=== PATIENT | female | born 1985 | race Hispanic/Latino ===

== ENCOUNTER 2021-05-25 13:21 | Outpatient (CLI) | payer OTHER | END 2021-05-25 13:22 | disposition home or self-care (01) | LOC: CSHMAMMO 13:21 | PROVIDERS: ATTEND Obstetrics & Gynecology | DX: N64.4 Mastodynia (principal) | CPT/HCPCS: 77066; G0279 ==

== ENCOUNTER 2021-11-15 08:52 | Outpatient (CLI) | payer OTHER | END 2021-11-15 08:53 | disposition home or self-care (01) | LOC: CSHULT 08:52 | PROVIDERS: ATTEND Obstetrics & Gynecology | DX: R92.8 Other abnormal and inconclusive findings on diagnostic imaging of breast (principal) ==

== ENCOUNTER 2022-02-03 12:34 | Day surgery (SDC) | payer OTHER ==
[2022-02-03] MEDS ORDERED: hydrALAZINE 20 MG/ML VIAL SLOW IVP PRN (14:24)
== END 2022-02-03 14:35 | disposition home or self-care (01) ==
LOC: CSHLD/OP 12:34
PROVIDERS: ATTEND Obstetrics & Gynecology
DX: O26.892 Other specified pregnancy related conditions, second trimester (principal); R10.2 Pelvic and perineal pain; O32.1XX0 Maternal care for breech presentation, not applicable or unspecified; O09.522 Supervision of elderly multigravida, second trimester; O34.219 Maternal care for unspecified type scar from previous cesarean delivery; O09.212 Supervision of pregnancy with history of pre-term labor, second trimester; Z3A.26 26 weeks gestation of pregnancy; Z88.0 Allergy status to penicillin; Z79.899 Other long term (current) drug therapy
CPT/HCPCS: 76815; 99282

== ENCOUNTER 2022-05-04 10:08 | Inpatient (IN) | payer OTHER ==
[2022-05-03 13:01] LABS: Hemoglobin 10.6 g/dL (12.0-15.5); Mean Corpuscular HGB CONC 30.7 g/dL (32.0-36.0); Mean Corpuscular Hemoglobin 23.9 pg (27.0-33.0); Mean Corpuscular Volume 77.7 fl (81.6-98.3); Mean Platelet Volume 10.5 fl (7.4-10.4); Platelet Count 324 10x3/uL (150-450); RBC Distribution Width 17.2 % (11.5-14.5); Red Blood Cell (RBC) Count 4.44 10x6/uL (3.90-5.03); White Blood Cell (WBC) Count 8.9 10x3/uL (3.5-10.5)
[2022-05-03 13:34] LABS: Hep B Surf Ag Non-Reactive S/CO (NonReactive); Syphilis Antibody Nonreactive (Nonreactive); Syphilis Antibody Index 0.09 S/CO (<1.00 Non-Reactive)
[2022-05-04] MEDS ORDERED: Bicitra 30 ML UDCUP PO PRN (11:02)
[2022-05-04] MEDS ORDERED: Famotidine/PF 20 mg/2ml Vial SLOW IVP PRN (11:02)
[2022-05-04] MEDS ORDERED: Ondansetron PF 4 MG/2 ML Vial IVP PRN ×2 (11:02→13:24)
[2022-05-04] MEDS ORDERED: hydrALAZINE 20 MG/ML VIAL SLOW IVP PRN ×2 (11:02→12:06)
[2022-05-04] MEDS ORDERED: Promethazine HCl 25 MG/ML VIAL IM PRN ×2 (11:02→13:24)
[2022-05-04 11:07] VITALS: BMI 40.5
[2022-05-04] MEDS: Lactated Ringer's 1,000 ML IV SCH ×2 (11:39→11:40)
[2022-05-04] MEDS ORDERED: Morphine PF 10 MG/10 ML VIAL ONE (11:40)
[2022-05-04] MEDS ORDERED: Dexamethasone 4 mg/ml Vial ONE (11:40)
[2022-05-04] MEDS ORDERED: Fentanyl 100 MCG/2 ML VIAL ONE (11:40)
[2022-05-04] MEDS ORDERED: ePHEDrine Sulfate 50 MG/10 ML VIAL ONE (11:40)
[2022-05-04] MEDS ORDERED: Ondansetron PF 4 MG/2 ML Vial ONE (11:40)
[2022-05-04] MEDS ORDERED: Oxytocin 10 UNITS/ML VIAL ONE ×2 (11:41→12:47)
[2022-05-04] MEDS ORDERED: Phenylephrine 40 MG/NS 250 ML 250 ML ONE (11:41)
[2022-05-04] MEDS ORDERED: Bisacodyl 10 MG SUPP PR PRN (12:06)
[2022-05-04] MEDS ORDERED: diphenhydrAMINE 25 MG CAP PO PRN (12:06)
[2022-05-04] MEDS ORDERED: HYDROcodone/Acetaminophen 5/325 mg Tablet PO PRN ×2 (12:06)
[2022-05-04] MEDS ORDERED: Lanolin Ointment 7 GM TUBE TOP PRN (12:06)
[2022-05-04] MEDS ORDERED: Boostrix 0.5 ML (Tdap) VIAL IM ONE (12:06)
[2022-05-04] MEDS ORDERED: Acetaminophen 325 MG TAB PO PRN (12:06)
[2022-05-04] MEDS ORDERED: Misoprostol 200 MCG TAB PR PRN (12:06)
[2022-05-04] MEDS ORDERED: Ketorolac Tromethamine 30 MG/ML VIAL ONE (12:47)
[2022-05-04] MEDS ORDERED: Promethazine HCl 25 MG/ML VIAL ONE (12:51)
[2022-05-04] MEDS ORDERED: Meperidine HCl/PF 25 MG/ML VIAL SLOW IVP PRN (13:24)
[2022-05-04] MEDS ORDERED: Moisturizing Cream (Eucerin) 113 GM JAR TOP PRN (13:24)
[2022-05-04] MEDS ORDERED: Naloxone HCl 0.4 mg/ml Vial IV PRN (13:24)
[2022-05-04] MEDS ORDERED: Naloxone HCl 0.4 mg/ml Vial IVP PRN ×2 (13:24)
[2022-05-04] MEDS ORDERED: HYDROmorphone 2 MG/ML VIAL SLOW IVP PRN (13:24)
[2022-05-04] MEDS ORDERED: Promethazine HCl 25 MG SUPP PR PRN (13:24)
[2022-05-04] MEDS ORDERED: Fentanyl 100 MCG/2 ML VIAL SLOW IVP PRN (13:24)
[2022-05-04] MEDS ORDERED: Ketorolac Tromethamine 30 MG/ML VIAL IVP PRN (13:24)
[2022-05-04] MEDS ORDERED: Ondansetron HCl/PF 4 MG/2 ML Vial IVP PRN (13:24)
[2022-05-04] MEDS ORDERED: diphenhydrAMINE 50 MG/ML VIAL IVP PRN (13:24)
[2022-05-04] MEDS ORDERED: Ketorolac Tromethamine 30 MG/ML VIAL IVP SCH (13:30)
[2022-05-04] MEDS ORDERED: Communication Order-Pharmacy FS SCH (13:30)
[2022-05-04] MEDS: Ibuprofen 800 MG TAB PO SCH (15:53)
[2022-05-04] MEDS: Ferrous Sulfate 325 MG TAB PO SCH (22:00)
[2022-05-04] MEDS: Docusate 100 MG CAP PO SCH (22:41)
[2022-05-05] MEDS: Simethicone Chewable 80 MG TAB PO PRN ×2 (03:50→21:56)
[2022-05-05] MEDS: Ibuprofen 800 MG TAB PO SCH ×4 (03:50→21:56)
[2022-05-05 04:28] LABS: Mean Corpuscular HGB CONC 31.8 g/dL (32.0-36.0); Mean Corpuscular Hemoglobin 24.1 pg (27.0-33.0); Mean Corpuscular Volume 75.7 fl (81.6-98.3); Mean Platelet Volume 10.4 fl (7.4-10.4); Platelet Count 261 10x3/uL (150-450); RBC Distribution Width 17.2 % (11.5-14.5); Red Blood Cell (RBC) Count 3.74 10x6/uL (3.90-5.03); White Blood Cell (WBC) Count 11.7 10x3/uL (3.5-10.5)
[2022-05-05] MEDS: Docusate 100 MG CAP PO SCH ×2 (07:53→21:56)
[2022-05-05] MEDS: Prenatal Vitamin 1 TAB PO SCH (07:53)
[2022-05-05] MEDS: Ferrous Sulfate 325 MG TAB PO SCH ×2 (07:53→21:56)
[2022-05-05] MEDS: Acetaminophen/Codeine 30-300mg Tablet PO PRN ×3 (12:23→21:57)
[2022-05-06] MEDS: Acetaminophen/Codeine 30-300mg Tablet PO PRN ×3 (02:04→13:51)
[2022-05-06] MEDS: Ibuprofen 800 MG TAB PO SCH ×2 (04:13→13:52)
[2022-05-06 07:53] VITALS: BP 142/72; TEMP 98.7
[2022-05-06] MEDS: Prenatal Vitamin 1 TAB PO SCH (08:43)
[2022-05-06] MEDS: Ferrous Sulfate 325 MG TAB PO SCH (08:43)
[2022-05-06] MEDS: Docusate 100 MG CAP PO SCH (08:43)
== END 2022-05-06 15:30 | disposition home or self-care (01) | DRG 785 ==
LOC: CSHLD 10:08 → CSHPP 14:45
PROVIDERS: ADMIT Obstetrics & Gynecology; ATTEND Obstetrics & Gynecology
PROC: 10D00Z1 Extraction of Products of Conception, Low, Open Approach (ICD-10-PCS; principal; 2022-05-04)
PROC: 0UT70ZZ Resection of Bilateral Fallopian Tubes, Open Approach (ICD-10-PCS; 2022-05-04)
DX: O34.211 Maternal care for low transverse scar from previous cesarean delivery (principal); Z3A.36 36 weeks gestation of pregnancy; Z37.0 Single live birth; Z20.822 Contact with and (suspected) exposure to COVID-19; Z80.8 Family history of malignant neoplasm of other organs or systems
CPT/HCPCS: 36415; 85027; 86780; 86850; 86900; 86901; 87340; 88305; J0690; J1100; J1885; J2274; J2405; J2550; J2590; J3010; J7120; S0028; U0003; U0005

== ENCOUNTER 2023-08-18 09:33 | Outpatient (CLI) | payer OTHER | END 2023-08-18 09:34 | disposition home or self-care (01) | LOC: CSHULT 09:33 | PROVIDERS: ATTEND Obstetrics & Gynecology | DX: N63.20 Unspecified lump in the left breast, unspecified quadrant (principal) ==